=== PATIENT | male | born 1940 | race American Indian/Alaskan Native ===

== ENCOUNTER 2018-03-12 08:44 | Day surgery (SDC) | payer OTHER ==
[~2018-03-12 08:44] MED LIST: NACL 0.9% 1000 ML 1,000 ML IV SCH
--- NOTE | 2018-03-12 10:05 | Anesthesia Day of Surgery ---
Anesthesia Day of Surgery - Day of Surgery Patient Examined: Yes Patient H&P Reviewed: Yes Patient is NPO: Yes
--- NOTE | 2018-03-12 10:05 | Anesthesia Consultation ---
Anesthesia Consult and Med Hx Date of service: 03/12/18 - Airway Anesthetic Teeth Evaluation: Bridges ROM Head & Neck: Adequate Mental/Hyoid Distance: Adequate Mallampati Class: Class II Intubation Access Assessment: Probably Good - Pulmonary Exam CTA: Yes - Cardiac Exam Cardiac Exam: RRR - Pre-Operative Health Status ASA Pre-Surgery Classification: ASA2 Proposed Anesthetic Plan: General, MAC - Central Nervous System Hx Psychiatric Problems: No - Other Systems Hx Alcohol Use: No Hx Substance Use: No Hx Cancer: Yes (prostrate cancer) - Additional Comments Anesthesia Medical History Comments: sinusitis
[2018-03-12] MEDS ORDERED: MARCAINE 0.5% 30 ML INFILTRATI ONE (10:28)
[2018-03-12] MEDS ORDERED: XYLOCAINE 1% 20 mL ONE (10:29)
[2018-03-12] MEDS ORDERED: DIPRIVAN 10 MG/ML IV ONE (10:38)
[2018-03-12] MEDS ORDERED: VERSED ONE (11:37)
[2018-03-12] MEDS ORDERED: XYLOCAINE 1% 20 mL INFILTRATI ONE (11:55)
[2018-03-12] MEDS ORDERED: MARCAINE 0.5% INFILTRATI ONE (11:55)
[2018-03-12] MEDS ORDERED: DECADRON ONE (12:00)
[2018-03-12] MEDS ORDERED: ZOFRAN ONE (12:00)
[2018-03-12] MEDS ORDERED: XYLOCAINE MPF 2% ONE (12:00)
--- NOTE | 2018-03-12 12:49 | Procedure Note ---
Date of procedure: 03/12/18 Pre-op diagnosis: Ganglion cyst, left 5th finger, 1.5 cm Post-op diagnosis: same Procedure: Excision of ganglion cyst, left 5th finger Description of procedure: Pt was placed supine on the OR table. MAC anesthesia was administered. Pt's left hand was prepped and draped. A field block about the left 5th finger cyst was performed with 4 ml of 0.5% Marcaine. A small, longitudinal incision was made over the cyst. The cyst was excised with sharp dissection. A small amount of bleeding was controlled with the Bovie. Skin was approximated with a running suture of 4-0 Nylon. A sterile pressure dressing was applied. Pt tolerated the procedure well. Anesthesia: MAC Surgeon: NORMAN MEHTA Estimated blood loss: minimal Pathology: list (Ganglion cyst) Specimen disposition: to lab Condition: stable Disposition: PACU
[2018-03-12 13:08] VITALS: BP 119/69
--- NOTE | 2018-03-12 14:47 | Post Anesthesia Evaluation ---
- Post Anesthesia Evaluation Patient Participated: Yes Airway Patent: Yes Stable Respiratory Function: Yes Nausea/Vomiting: No Temp > 96.8F: Yes Pain Manageable: Yes Adequeate Hydration: Yes Anesthesia Complications: No
== END 2018-03-12 14:00 | disposition home or self-care (01) ==
LOC: OR 08:44
PROVIDERS: ATTEND Surgery
DX: M67.442 Ganglion, left hand (principal); K21.9 Gastro-esophageal reflux disease without esophagitis; Z85.46 Personal history of malignant neoplasm of prostate
CPT/HCPCS: 26160; 88304; J1100; J2250; J2405; J2704; J7030